=== PATIENT | male | born 1935 | race Caucasian/White ===

== ENCOUNTER 2016-05-18 10:54 | Emergency (ER) | payer MEDICARE ==
[~2016-05-18 10:54] MED LIST: ADULT LOW DOSE81 M1 PO; ALDACTONE25 M1 PO; ALDACTONE25 MG PO; ASPIR-LOW81 MG PO; ATIVAN0.5 M1 PO; CORDARONE200 M1 PO; COUMADIN2.5 M1 PO; COZAAR100 M1 PO; DEMADEX20 M1 PO; GUANFACINE HCL2 M1 PO; GUANFACINE HCL2 MG PO; K-TAB ER20 ME1 PO; LASIX40 M1 PO; LEVOTHYROXINE100 MC1 PO; LEVOTHYROXINE50 MC3; LEXAPRO10 M2 PO; LOPRESSOR25 MG/TA7 PO; METOLAZONE2.5 M1 PO; METOPROLOL TART25 M1 PO; MILK OF MAGNESIA PO; MIRALAX17 G2 PO; MONOPRIL40 MG PO; MUPIROCIN22 G2 TOP; NIFEDICAL XL30 MG; NORVASC2.5 M1 PO; NORVASC2.5 MG PO; PACERONE200 M1 PO; PLAVIX75 M1 PO; POTASSIUM PO; RESTORIL30 M1 PO; STOOL SOFTENER1 EAC2 PO; SYNTHROID112 MC1 PO; TRAMADOL100 MG PO; ULTRAM50 M1 PO; XARELTO20 MG PO; [UNRECOGNIZED DRUG - OTHER] PO
[2016-06-01] MEDS ORDERED: SENNA PLUS TAB1 EAC1 PO (12:11)
[2016-06-01] MEDS ORDERED: DEMADEX20 M1 PO (12:14)
[2016-10-20] MEDS ORDERED: VITAMIN D31000 UNI4 PO (16:51)
[2016-10-20] MEDS ORDERED: GINSENG100 M1 PO (16:52)
[2016-10-24] MEDS ORDERED: AMILORIDE HCL5 M1 PO (11:01)
[2016-10-24] MEDS ORDERED: METOPROLOL TART25 M1 PO (11:02)
[2016-10-24] MEDS ORDERED: CEFTIN250 MG/51 PO (11:04)
== END 2016-05-18 13:18 ==
LOC: EDMED 10:54
DX: K59.00 Constipation, unspecified (principal); K56.49 Other impaction of intestine; I48.91 Unspecified atrial fibrillation; I13.0 Hypertensive heart and chronic kidney disease with heart failure and stage 1 through stage 4 chronic kidney disease, or unspecified chronic kidney disease; I50.30 Unspecified diastolic (congestive) heart failure; N18.9 Chronic kidney disease, unspecified; I25.10 Atherosclerotic heart disease of native coronary artery without angina pectoris; M19.90 Unspecified osteoarthritis, unspecified site

== ENCOUNTER 2016-06-18 20:32 | Emergency (ER) | payer MEDICARE ==
[~2016-06-18 20:32] MED LIST changes: +SENNA PLUS TAB1 EAC1 PO
[2016-06-18] MEDS ORDERED: METOLAZONE2.5 M1 PO (22:10)
[2016-06-18] MEDS ORDERED: MILK OF MAGNESIA PO (22:11)
[2016-06-18] MEDS ORDERED: SENOKOT-S TABL1 EACH PO (23:20)
[2016-10-20] MEDS ORDERED: VITAMIN D31000 UNI4 PO (16:51)
[2016-10-20] MEDS ORDERED: GINSENG100 M1 PO (16:52)
[2016-10-24] MEDS ORDERED: AMILORIDE HCL5 M1 PO (11:01)
[2016-10-24] MEDS ORDERED: METOPROLOL TART25 M1 PO (11:02)
[2016-10-24] MEDS ORDERED: CEFTIN250 MG/51 PO (11:04)
== END 2016-06-18 23:38 ==
LOC: EDMED 20:32
DX: K59.00 Constipation, unspecified (principal); I13.0 Hypertensive heart and chronic kidney disease with heart failure and stage 1 through stage 4 chronic kidney disease, or unspecified chronic kidney disease; N18.9 Chronic kidney disease, unspecified; M19.90 Unspecified osteoarthritis, unspecified site; E66.01 Morbid (severe) obesity due to excess calories; Z86.718 Personal history of other venous thrombosis and embolism; Z79.82 Long term (current) use of aspirin; Z79.890 Hormone replacement therapy; Z79.899 Other long term (current) drug therapy

== ENCOUNTER 2016-08-21 09:29 | Inpatient (IN) | payer MEDICARE ==
[~2016-08-21 09:29] MED LIST changes: +SENOKOT-S TABL1 EACH PO
[2016-08-21] MEDS ORDERED: ATORVASTATIN CA20 M1 PO (11:21)
[2016-08-21 12:15] LABS: BASO % 0.1 % (0-2); EOS % 0.1 % (0-7); HCT-HEMATOCRIT 46.2 % (36.0-53.5); HGB-HEMOGLOBIN 15.8 gm/dl (13.5-17.0); IMMATURE GRANULOCYTES ABSOLUTE 0.04 tho/cmm (0-0.03); IMMATURE GRANULOCYTES PERCENT 0.2 % (0-0.3); LYMPH % 5.1 % (20-45); LYMPH ABSOLUTE COUNT 0.9 tho/cmm (0.8-4.5); MCH (MEAN CORPUSCULAR HGB) 30.2 pg (28.0-32.0); MCHC MEAN CORPUSCULAR HGB CONC 34.2 % (32.0-36.0); MCV (MEAN CELL VOLUME) 88.2 fl (82.0-96.0); MEAN PLATELET VOLUME 9.5 cmc (9.4-12.4); MONO % 6.7 % (0-12); MONOCYTE ABSOLUTE COUNT 1.2 tho/cmm (0.0-1.2); NEUTROPHIL ABSOLUTE COUNT 15.8 tho/cmm (1.6-8.0); NEUTROPHIL-AUTOMATED 15.8 tho/cmm (1.6-8.0); NEUTROPHILS % 87.8 % (40-80); PLATELET COUNT 206 tho/cmm (150-450); RED BLOOD COUNT 5.24 mil/cmm (4.40-5.70); RED CELL DISTRIBUTION WIDTH 14.2 % (12.4-16.4)
[2016-08-21 12:29] LABS: ANION GAP 14 mmol/L (0-20); BLOOD UREA NITROGEN 23 mg/dl (6-24); CALCIUM 8.7 mg/dl (8.5-10.5); CARBON DIOXIDE-VENOUS 30 mmol/L (22-32); CHLORIDE 93 mmol/l (96-110); CREATININE 1.59 mg/dl (0.60-1.30); GLUCOSE 137 mg/dL (70-110); POTASSIUM 4.2 mmol/L (3.7-5.1); SODIUM 133 mmol/L (135-145); eGFR VALUE FOR BLACK 46 mL/Min
--- NOTE | 2016-08-22 00:03 | NUR ---
VN NOTE-PATIENT CALLED ASKING IF HE WOULD HAVE SOME ICE OR HEAT ON HIS LEGS THEY HURT. HE JUST GOT PAIN MEDS AT 2309 SO I TOLD HIM HOPEFULLY THAT WILL HELP AND THEY NEED TO GET SOME EDEMAWEAR ON HIS LEGS AND HE IS TO KEEP THEM ELEVATED. EXPLAINED PROBABLY NO HEAT OR ICE DUE TO VASCULAR HX. CHECKED WITH KATHERIN GODFREY AND SHE SUGGESTED LOTION ALSO IF NOT WEEPING OR OPEN AREAS. SPOKE WITH BRYN BEDSIDE RN AND AIDE FOR APPLICATION OF LOTION/ALOE VESTA AND EDEMAWEAR AND ELEVATING. WILL CONTINUE TO MONITOR
[2016-08-22 06:12] LABS: BASO % 0.2 % (0-2); EOS % 0.6 % (0-7); EOSINOPHIL ABSOLUTE COUNT 0.1 tho/cmm (0.0-0.7); HCT-HEMATOCRIT 43.4 % (36.0-53.5); HGB-HEMOGLOBIN 14.3 gm/dl (13.5-17.0); IMMATURE GRANULOCYTES ABSOLUTE 0.03 tho/cmm (0-0.03); IMMATURE GRANULOCYTES PERCENT 0.2 % (0-0.3); LYMPH % 7.1 % (20-45); LYMPH ABSOLUTE COUNT 0.9 tho/cmm (0.8-4.5); MCH (MEAN CORPUSCULAR HGB) 29.4 pg (28.0-32.0); MCHC MEAN CORPUSCULAR HGB CONC 32.9 % (32.0-36.0); MCV (MEAN CELL VOLUME) 89.1 fl (82.0-96.0); MEAN PLATELET VOLUME 9.4 cmc (9.4-12.4); MONO % 8.5 % (0-12); MONOCYTE ABSOLUTE COUNT 1.1 tho/cmm (0.0-1.2); NEUTROPHIL ABSOLUTE COUNT 10.6 tho/cmm (1.6-8.0); NEUTROPHIL-AUTOMATED 10.6 tho/cmm (1.6-8.0); NEUTROPHILS % 83.4 % (40-80); PLATELET COUNT 173 tho/cmm (150-450); RED BLOOD COUNT 4.87 mil/cmm (4.40-5.70); RED CELL DISTRIBUTION WIDTH 14.4 % (12.4-16.4); WHITE BLOOD COUNT 12.7 tho/cmm (4.0-10.0)
[2016-08-22 06:41] LABS: ANION GAP 11 mmol/L (0-20); BLOOD UREA NITROGEN 26 mg/dl (6-24); CALCIUM 8.9 mg/dl (8.5-10.5); CARBON DIOXIDE-VENOUS 33 mmol/L (22-32); CHLORIDE 95 mmol/l (96-110); CREATININE 1.57 mg/dl (0.60-1.30); GLUCOSE 135 mg/dL (70-110); SODIUM 135 mmol/L (135-145); eGFR VALUE FOR BLACK 47 mL/Min
[2016-08-22 06:42] LABS: POTASSIUM 4.2 mmol/L (3.7-5.1)
--- NOTE | 2016-08-22 20:39 | NUR ---
VIRTUAL CARE NOTE: PT. IN BED STATES FEELS A LOT BETTER AND HIS PAIN IS ALSO. DAUGHTER AND PT. INQUIRING WHEN HIS DISCHARGE WOULD BE. EDUCATION PROVIDED THAT DISCHARGE WILL DEPEND ON HOW HIS LEG IMRPOVES AND HOW HIS BODY RESPONDS TO THE ANTIBITIOCS AND ALSO THE IMPORTANCE OF WEARING THE WRAPS ORDERED AND ELEVATING HIS LEGS IN ORDER FOR THE EDEMA TO REDUCE AND PROMOTE THE HEALING. ALSO EDUCATION PROVIDED THAT THE GROUP CARE WORKER WOULD GO OVER DISCHARGE OPTIONS WITH ALL OF US TOGETHER A TEAM FOR PLANNING. EITHER DENIES FURTHER QUESTIONS OR NEEDS AT THIS TIME. SINCE WRAPS AND PILLOWS NOT ON THE PT. SUPERVISOR ASSEMBLY STOCK PAGED FOR NEEDS. INSTRUCTED TO CALL FOR FURTHER NEEDS. PT. STATES VERBAL AGREEMENT.
[2016-08-23 05:13] LABS: BASO % 0.2 % (0-2); EOS % 1.2 % (0-7); EOSINOPHIL ABSOLUTE COUNT 0.1 tho/cmm (0.0-0.7); HCT-HEMATOCRIT 44.9 % (36.0-53.5); HGB-HEMOGLOBIN 14.9 gm/dl (13.5-17.0); IMMATURE GRANULOCYTES ABSOLUTE 0.03 tho/cmm (0-0.03); IMMATURE GRANULOCYTES PERCENT 0.3 % (0-0.3); LYMPH % 10.4 % (20-45); LYMPH ABSOLUTE COUNT 1.2 tho/cmm (0.8-4.5); MCH (MEAN CORPUSCULAR HGB) 29.6 pg (28.0-32.0); MCHC MEAN CORPUSCULAR HGB CONC 33.2 % (32.0-36.0); MCV (MEAN CELL VOLUME) 89.3 fl (82.0-96.0); MEAN PLATELET VOLUME 9.4 cmc (9.4-12.4); MONO % 10.6 % (0-12); MONOCYTE ABSOLUTE COUNT 1.3 tho/cmm (0.0-1.2); NEUTROPHIL ABSOLUTE COUNT 9.2 tho/cmm (1.6-8.0); NEUTROPHIL-AUTOMATED 9.2 tho/cmm (1.6-8.0); NEUTROPHILS % 77.3 % (40-80); PLATELET COUNT 206 tho/cmm (150-450); RED BLOOD COUNT 5.03 mil/cmm (4.40-5.70); RED CELL DISTRIBUTION WIDTH 14.7 % (12.4-16.4); WHITE BLOOD COUNT 11.9 tho/cmm (4.0-10.0)
[2016-08-23 05:22] LABS: ANION GAP 12 mmol/L (0-20); BLOOD UREA NITROGEN 28 mg/dl (6-24); CALCIUM 8.7 mg/dl (8.5-10.5); CARBON DIOXIDE-VENOUS 33 mmol/L (22-32); CHLORIDE 93 mmol/l (96-110); CREATININE 1.65 mg/dl (0.60-1.30); GLUCOSE 118 mg/dL (70-110); POTASSIUM 3.7 mmol/L (3.7-5.1); SODIUM 134 mmol/L (135-145); eGFR VALUE FOR BLACK 44 mL/Min
[2016-08-24 05:39] LABS: HGB-HEMOGLOBIN 14.6 gm/dl (13.5-17.0); PLATELET COUNT 212 tho/cmm (150-450)
[2016-08-24] MEDS ORDERED: KEFLEX500 M4 PO (10:53)
[2016-10-20] MEDS ORDERED: VITAMIN D31000 UNI4 PO (16:51)
[2016-10-20] MEDS ORDERED: GINSENG100 M1 PO (16:52)
[2016-10-24] MEDS ORDERED: AMILORIDE HCL5 M1 PO (11:01)
[2016-10-24] MEDS ORDERED: METOPROLOL TART25 M1 PO (11:02)
[2016-10-24] MEDS ORDERED: CEFTIN250 MG/51 PO (11:04)
== END 2016-08-24 16:10 | disposition home health service (06) | DRG 603 ==
LOC: EDMED 09:29 → EMR2 16:40 → 5WD 20:00
PROVIDERS: Physician Assistant; ADMIT Family Medicine
DX: L03.116 Cellulitis of left lower limb (principal); E87.2 Acidosis; I13.0 Hypertensive heart and chronic kidney disease with heart failure and stage 1 through stage 4 chronic kidney disease, or unspecified chronic kidney disease; I50.32 Chronic diastolic (congestive) heart failure; N18.3 Chronic kidney disease, stage 3 (moderate); Z68.42 Body mass index [BMI] 45.0-49.9, adult; I87.2 Venous insufficiency (chronic) (peripheral); I73.9 Peripheral vascular disease, unspecified; E78.5 Hyperlipidemia, unspecified; E66.01 Morbid (severe) obesity due to excess calories; Z91.19 Patient's noncompliance with other medical treatment and regimen; Z86.718 Personal history of other venous thrombosis and embolism; Z79.02 Long term (current) use of antithrombotics/antiplatelets; I25.10 Atherosclerotic heart disease of native coronary artery without angina pectoris; Z79.82 Long term (current) use of aspirin; E03.9 Hypothyroidism, unspecified; I25.5 Ischemic cardiomyopathy; Z95.818 Presence of other cardiac implants and grafts; K59.09 Other constipation
CPT/HCPCS: J0696; J1650; J2543; J3370; J7030; J7050

== ENCOUNTER 2016-11-13 21:47 | Observation (INO) | payer MEDICARE ==
[~2016-11-13] VITALS: Ht 177.8 cm; Wt 145.5 kg
[~2016-11-13 21:47] MED LIST changes: +AMILORIDE HCL5 M1 PO; +ATORVASTATIN CA20 M1 PO; +CEFTIN250 MG/51 PO; +GINSENG100 M1 PO; +KEFLEX500 M4 PO; +VITAMIN D31000 UNI4 PO
[2016-11-13 22:43] LABS: BASO % 0.4 % (0-2); EOS % 2.9 % (0-7); EOSINOPHIL ABSOLUTE COUNT 0.2 tho/cmm (0.0-0.7); HGB-HEMOGLOBIN 13.7 gm/dl (13.5-17.0); IMMATURE GRANULOCYTES ABSOLUTE 0.03 tho/cmm (0-0.03); IMMATURE GRANULOCYTES PERCENT 0.4 % (0-0.3); LYMPH % 11.1 % (20-45); LYMPH ABSOLUTE COUNT 0.9 tho/cmm (0.8-4.5); MCH (MEAN CORPUSCULAR HGB) 29.8 pg (28.0-32.0); MCHC MEAN CORPUSCULAR HGB CONC 33.4 % (32.0-36.0); MCV (MEAN CELL VOLUME) 89.3 fl (82.0-96.0); MEAN PLATELET VOLUME 9.3 cmc (9.4-12.4); MONO % 12.4 % (0-12); NEUTROPHIL ABSOLUTE COUNT 6.1 tho/cmm (1.6-8.0); NEUTROPHIL-AUTOMATED 6.1 tho/cmm (1.6-8.0); NEUTROPHILS % 72.8 % (40-80); PLATELET COUNT 271 tho/cmm (150-450); RED BLOOD COUNT 4.59 mil/cmm (4.40-5.70); RED CELL DISTRIBUTION WIDTH 15.2 % (12.4-16.4); WHITE BLOOD COUNT 8.3 tho/cmm (4.0-10.0)
[2016-11-13 23:06] LABS: ALB/GLOB RATIO 0.7 (0.8-2.0); ALBUMIN 3.2 g/dl (3.5-5.0); ALKALINE PHOSPHATASE 98 U/L (33-138); ALT/SGPT 22 U/L (12-78); BILIRUBIN,TOTAL 0.6 mg/dl (0.0-1.5); BLOOD UREA NITROGEN 18 mg/dl (6-24); CALCIUM 8.4 mg/dl (8.5-10.5); CARBON DIOXIDE-VENOUS 30 mmol/L (22-32); CHLORIDE 97 mmol/l (96-110); CREATININE 1.54 mg/dl (0.60-1.30); GLUCOSE 113 mg/dL (70-110); SODIUM 132 mmol/L (135-145); eGFR VALUE FOR BLACK 48 mL/Min
[2016-11-13 23:09] LABS: ANION GAP 10 mmol/L (0-20); AST/SGOT 28 U/L (10-40); POTASSIUM 4.6 mmol/L (3.7-5.1)
[2016-11-13 23:12] LABS: PROCALCITONIN <0.05 ng/ml (0.05-0.09)
[2016-11-14 04:20] LABS: C-REACTIVE PROTEIN 3.1 mg/dl (0-0.9)
[2016-11-14 05:37] LABS: BLOOD UREA NITROGEN 18 mg/dl (6-24); CALCIUM 8.5 mg/dl (8.5-10.5); CARBON DIOXIDE-VENOUS 32 mmol/L (22-32); CHLORIDE 95 mmol/l (96-110); SODIUM 136 mmol/L (135-145); eGFR VALUE FOR BLACK 45 mL/Min
[2016-11-14 05:41] LABS: ANION GAP 13 mmol/L (0-20); GLUCOSE 182 mg/dL (70-110); MAGNESIUM 2.4 mg/dl (1.8-2.6)
[2016-11-14 07:21] LABS: BASO % 0.4 % (0-2); EOS % 3.4 % (0-7); EOSINOPHIL ABSOLUTE COUNT 0.3 tho/cmm (0.0-0.7); HCT-HEMATOCRIT 38.6 % (36.0-53.5); HGB-HEMOGLOBIN 12.7 gm/dl (13.5-17.0); IMMATURE GRANULOCYTES ABSOLUTE 0.03 tho/cmm (0-0.03); IMMATURE GRANULOCYTES PERCENT 0.4 % (0-0.3); LYMPH % 14.4 % (20-45); LYMPH ABSOLUTE COUNT 1.1 tho/cmm (0.8-4.5); MCH (MEAN CORPUSCULAR HGB) 29.5 pg (28.0-32.0); MCHC MEAN CORPUSCULAR HGB CONC 32.9 % (32.0-36.0); MCV (MEAN CELL VOLUME) 89.6 fl (82.0-96.0); MONO % 10.9 % (0-12); MONOCYTE ABSOLUTE COUNT 0.8 tho/cmm (0.0-1.2); NEUTROPHIL ABSOLUTE COUNT 5.4 tho/cmm (1.6-8.0); NEUTROPHIL-AUTOMATED 5.4 tho/cmm (1.6-8.0); NEUTROPHILS % 70.5 % (40-80); PLATELET COUNT 241 tho/cmm (150-450); RED BLOOD COUNT 4.31 mil/cmm (4.40-5.70); RED CELL DISTRIBUTION WIDTH 15.1 % (12.4-16.4); WHITE BLOOD COUNT 7.6 tho/cmm (4.0-10.0)
[2016-11-15 05:13] LABS: ANION GAP 8 mmol/L (0-20); BLOOD UREA NITROGEN 16 mg/dl (6-24); C-REACTIVE PROTEIN 2.8 mg/dl (0-0.9); CALCIUM 8.5 mg/dl (8.5-10.5); CARBON DIOXIDE-VENOUS 34 mmol/L (22-32); CHLORIDE 97 mmol/l (96-110); CREATININE 1.35 mg/dl (0.60-1.30); GLUCOSE 111 mg/dL (70-110); SODIUM 134 mmol/L (135-145); eGFR VALUE FOR BLACK 56 mL/Min
[2016-11-15 05:40] LABS: POTASSIUM 4.7 mmol/L (3.7-5.1)
[2016-11-15 05:51] LABS: BASO % 0.6 % (0-2); EOS % 3.6 % (0-7); EOSINOPHIL ABSOLUTE COUNT 0.3 tho/cmm (0.0-0.7); HCT-HEMATOCRIT 39.4 % (36.0-53.5); HGB-HEMOGLOBIN 12.8 gm/dl (13.5-17.0); IMMATURE GRANULOCYTES ABSOLUTE 0.04 tho/cmm (0-0.03); IMMATURE GRANULOCYTES PERCENT 0.6 % (0-0.3); LYMPH % 13.8 % (20-45); MCH (MEAN CORPUSCULAR HGB) 29.2 pg (28.0-32.0); MCHC MEAN CORPUSCULAR HGB CONC 32.5 % (32.0-36.0); MEAN PLATELET VOLUME 9.1 cmc (9.4-12.4); MONO % 12.5 % (0-12); MONOCYTE ABSOLUTE COUNT 0.9 tho/cmm (0.0-1.2); NEUTROPHILS % 68.9 % (40-80); PLATELET COUNT 269 tho/cmm (150-450); RED BLOOD COUNT 4.38 mil/cmm (4.40-5.70); RED CELL DISTRIBUTION WIDTH 15.3 % (12.4-16.4); WHITE BLOOD COUNT 7.2 tho/cmm (4.0-10.0)
[2016-11-15 05:56] LABS: PROCALCITONIN <0.05 ng/ml (0.05-0.09)
[2016-11-16 05:30] LABS: BASO % 0.4 % (0-2); EOS % 4.4 % (0-7); EOSINOPHIL ABSOLUTE COUNT 0.3 tho/cmm (0.0-0.7); HCT-HEMATOCRIT 39.8 % (36.0-53.5); HGB-HEMOGLOBIN 13.1 gm/dl (13.5-17.0); IMMATURE GRANULOCYTES ABSOLUTE 0.03 tho/cmm (0-0.03); IMMATURE GRANULOCYTES PERCENT 0.4 % (0-0.3); LYMPH % 12.1 % (20-45); LYMPH ABSOLUTE COUNT 0.9 tho/cmm (0.8-4.5); MCH (MEAN CORPUSCULAR HGB) 29.6 pg (28.0-32.0); MCHC MEAN CORPUSCULAR HGB CONC 32.9 % (32.0-36.0); MCV (MEAN CELL VOLUME) 89.8 fl (82.0-96.0); MEAN PLATELET VOLUME 9.2 cmc (9.4-12.4); MONO % 13.2 % (0-12); NEUTROPHIL ABSOLUTE COUNT 5.3 tho/cmm (1.6-8.0); NEUTROPHIL-AUTOMATED 5.3 tho/cmm (1.6-8.0); NEUTROPHILS % 69.5 % (40-80); PLATELET COUNT 274 tho/cmm (150-450); RED BLOOD COUNT 4.43 mil/cmm (4.40-5.70); RED CELL DISTRIBUTION WIDTH 15.3 % (12.4-16.4); WHITE BLOOD COUNT 7.7 tho/cmm (4.0-10.0)
[2016-11-16 05:51] LABS: ANION GAP 11 mmol/L (0-20); BLOOD UREA NITROGEN 20 mg/dl (6-24); CARBON DIOXIDE-VENOUS 32 mmol/L (22-32); CHLORIDE 99 mmol/l (96-110); CREATININE 1.43 mg/dl (0.60-1.30); GLUCOSE 103 mg/dL (70-110); POTASSIUM 4.2 mmol/L (3.7-5.1); SODIUM 138 mmol/L (135-145); eGFR VALUE FOR BLACK 52 mL/Min
== END 2016-11-16 15:09 ==
LOC: EDMED 21:47 → EMR2 11-14 02:00 → PCUB 11-14 02:00
PROVIDERS: Emergency Medicine; Family Medicine; Hospitalist; Registered Nurse; ADMIT Internal Medicine
DX: I13.0 Hypertensive heart and chronic kidney disease with heart failure and stage 1 through stage 4 chronic kidney disease, or unspecified chronic kidney disease (principal); N18.3 Chronic kidney disease, stage 3 (moderate); I50.33 Acute on chronic diastolic (congestive) heart failure; I25.5 Ischemic cardiomyopathy; E78.5 Hyperlipidemia, unspecified; M19.90 Unspecified osteoarthritis, unspecified site; I25.10 Atherosclerotic heart disease of native coronary artery without angina pectoris; I73.9 Peripheral vascular disease, unspecified; I48.2 Chronic atrial fibrillation; E66.01 Morbid (severe) obesity due to excess calories; Z68.42 Body mass index [BMI] 45.0-49.9, adult; E03.9 Hypothyroidism, unspecified; R06.01 Orthopnea; R60.0 Localized edema; I83.10 Varicose veins of unspecified lower extremity with inflammation; Z79.02 Long term (current) use of antithrombotics/antiplatelets; Z79.82 Long term (current) use of aspirin; Z79.899 Other long term (current) drug therapy
CPT/HCPCS: C8929; G8978-GP-CJ; G8979-GP-CI; G8980-GP-CJ; G8987-GO-CI; G8988-GO-CH; G8989-GO-CI; J1650; J1940